=== PATIENT | male | born 1990 | race Caucasian/White ===

== ENCOUNTER 2019-03-10 19:46 | Emergency (ER) | payer OTHER, SELFPAY ==
[2019-03-10 19:52] VITALS: BP 166/87; PULSE 70; RESP 14; TEMP 36.2; O2SAT 99
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
[2019-03-10 21:15] VITALS: PULSE 68; RESP 14; O2SAT 99
== END 2019-03-10 21:16 | disposition home or self-care (01) ==
PROVIDERS: Emergency Provider Emergency Medicine
DX: S90.31XA Contusion of right foot, initial encounter (principal); S90.412A Abrasion, left great toe, initial encounter; V29.9XXA Motorcycle rider (driver) (passenger) injured in unspecified traffic accident, initial encounter
CPT/HCPCS: 73630; 99282; 99283

== ENCOUNTER 2020-01-21 13:50 | Emergency (ER) | payer OTHER, SELFPAY ==
[2020-01-21 14:06] VITALS: BP 166/79; PULSE 75; RESP 14; TEMP 36.9; O2SAT 99
[2020-01-21] MEDS: SODIUM CHLORIDE 0.9% 1,000 ML 1000 ML IV (14:38)
--- NOTE | 2020-01-21 14:42 | ED.GENADULT ---
HPI - General Adult General Chief complaint: Fever Stated complaint: poss food poisioning flu symptoms Time Seen by Provider: 01/21/20 14:10 Source: patient Mode of arrival: Ambulatory History of Present Illness HPI narrative: 29-year-old otherwise healthy gentleman presents with 48 hours of profuse diarrhea, mild abdominal cramping, fevers and sweats. There has been no emesis, no blood, no chest pain, dyspnea, rashes. No and else at home is sick. The diarrhea is watery, no blood. He denies any recent travel or other exposures Related Data Home Medications Medication Instructions Recorded Confirmed ibuprofen 800 mg PO TID PRN 03/10/19 03/10/19 Allergies Allergy/AdvReac Type Severity Reaction Status Date / Time No Known Drug Allergies Allergy Verified 03/10/19 19:55 Review of Systems Review of Systems Narrative: All systems reviewed and are unremarkable except as noted in HPI and below Patient History Medical History Healthy adult (Acute) Social History Smoking Status: Never smoker Smoking Status: Never smoker alcohol intake frequency: 0-2 drinks per day Substance Use Type: does not use Exam Narrative Exam Narrative: General: Healthy appearing, in no acute distress. Able to give a complete and coherent history. Well-nourished well-developed HEENT: Moist mucous membranes, normal sclera with reactive pupils, Neck: No JVD, supple Respiratory: Lungs are clear to auscultation, no wheezing no rales no rhonchi. Full and symmetrical air movement Cardiac: Regular rate and rhythm no murmurs no bruits Abdomen: Soft, nontender, hyperactive bowel tones, no flank pain Skin: Warm and dry, no rashes Neurologic: Grossly neurologically intact with no obvious asymmetries or abnormalities Extremities: No trauma, well perfused Psych: Cooperative, appropriate insight and affect Initial Vital Signs Initial Vital Signs: Vital Signs Temperature 98.5 F 01/21/20 14:06 Pulse Rate 75 01/21/20 14:06 Respiratory Rate 14 01/21/20 14:06 Blood Pressure 166/79 H 01/21/20 14:06 Pulse Oximetry 99 01/21/20 14:06 Course Orders Ordered: Discontinued Medications Sodium Chloride (Normal Saline 0.9%) 1,000 mls @ 1,000 mls/hr IV BOLUS ONE Stop: 01/21/20 15:21 Last Infusion: 01/21/20 16:43 Dose: 0 mls/hr Documented by: Admin: 01/21/20 14:38 Dose: 1,000 mls/hr Documented by: ZAIRE Vital Signs Vital signs: Vital Signs - 8 hr 01/21/20 14:06 Temperature 98.5 F Pulse Rate 75 Respiratory Rate 14 Blood Pressure 166/79 H Pulse Oximetry 99 Restraint [id number] evaluation Date: 01/22/20 Time: 16:11 Medical Decision Making Lab Data Result diagrams: 01/21/20 14:40 01/21/20 14:40 Labs: Lab Results 01/21/20 01/21/20 01/21/20 Range/Units 14:40 14:40 14:40 WBC 8.2 (4.5-11.0) X10^3/uL RBC 4.96 (4.5-5.9) X10^6/uL Hgb 15.9 (13.5-17.5) g/dL Hct 45.0 (41-53) % MCV 90.7 (80-100) fL MCH 32.1 (26-34) PG MCHC 35.4 (30-36) % RDW 12.9 (11.6-14.8) % Plt Count 186 (150-400) X10^3/uL Neut % (Auto) 82.3 H (50-75) % Lymph % (Auto) 10.2 L (25-40) % [place] % (Auto) 7.2 (3-14) % Eos % (Auto) 0.2 L (2-4) % Baso % (Auto) 0.1 (0-2) % Neut # (Auto) 6700 (3256-2000) /uL Lymph # (Auto) 800 L (4357-2841) /uL [place] # (Auto) 600 (0-900) /uL Eos # (Auto) 0 (0-450) /uL Baso # (Auto) 0 (0-100) /uL Sodium 136 L (137-145) mmol/L Potassium 4.1 (3.4-5.1) mmol/L Chloride 100 (98-107) mmol/L Carbon Dioxide 27 (22-32) mmol/L BUN 12 (9-20) mg/dL Creatinine 1.10 (0.66-1.25) mg/dL Estimated GFR > 60.0 (>60) mL/min BUN/Creatinine Ratio 10.9 (6-22) Glucose 118 H (70-100) mg/dL Calcium 9.7 (8.4-10.2) mg/dL Total Bilirubin 0.8 (0.2-1.3) mg/dL AST 30 (17-59) IU/L ALT 26 (<50) IU/L Alkaline Phosphatase 69 (38-126) U/L Total Protein 8.1 (6.3-8.2) g/dL Albumin 4.6 (3.5-5.0) g/dL Globulin 3.5 (1.7-4.1) g/dL Albumin/Globulin Ratio 1.3 (1.0-2.8) Lipase 76 (23-300) U/L Stl C. cayetanensis PCR Not detected (Not Detect) Stool Rotavirus (PCR) Not detected (Not Detect) Stool Adenovirus (PCR) Not detected (Not Detect) Stool Astrovirus (PCR) Not detected (Not Detect) Stool Cryptosporidium PCR Not detected (Not Detect) Stl E.coli Shiga Tox PCR Not detected (Not Detect) St Sh/Enteroin Ecoli PCR Not detected (Not Detect) Stool E coli O157 PCR Not detected (Not Detect) Stl Enterotoxigenic E PCR Not detected (Not Detect) Stool EPEC (PCR) Not detected (Not Detect) Stl E. histolytica PCR Not detected (Not Detect) Stool Giardia Lamblia PCR Not detected (Not Detect) Stool Sapovirus (PCR) Not detected (Not Detect) Stl P. shigelloides PCR Not detected (Not Detect) St Y.enterocolitica PCR Not detected (Not Detect) Stool Vibrio (PCR) Not detected (Not Detect) Stl Vibrio cholerae PCR Not detected (Not Detect) Stl Enteroaggr Ecoli PCR Not detected (Not Detect) Stl Norovirus GI/GII PCR Not detected (Not Detect) Campylobacter (PCR) Detected H (Not Detect) C. difficile Tox (PCR) Not detected (Not Detect) Salmonella (PCR) Not detected (Not Detect) [facility] Narrative Medical decision making narrative: 01/22/2020 800 stool returned positive for Campylobacter will treat with azithromycin 500 for 3 days. Will contact patient and call prescription to pharmacy for him. Discharge Plan Departure Patient Disposition: Home Clinical Impression: Gastroenteritis Discharge Date/Time: 01/21/20 16:47 Instructions: DI for Viral Gastroenteritis -- Adult Activity Restrictions/Additional Instructions: Thank you for coming in today I will give you a call tomorrow at [phone] to let you know the results of your stool viral panel. In the meantime, I do believe it is safe you to go home. Please do continue to use Gatorade and Pedialyte to keep well hydrated. I expect that you still have a couple more days of diarrhea and arranging your work schedule to make sure that you have immediate access to the bathroom would be prudent. Please make sure that your using good cleaning techniques after going to the bathroom including using bleach to keep the bathroom as clean as possible to avoid spreading this to your family. If you find that you are getting worse, developed a worsening fever, any blood in the stool or began vomiting it would be appropriate to return to the emergency room for further evaluation. I wish you the best. Prescriptions: No Action ibuprofen 800 mg Tablet 800 mg PO TID PRN (Reason: Pain (Scale Score 7-10)) RF: 0
[2020-01-21 15:30] LABS: Add Manual Diff / Slide Review NO; Basophils Absolute Auto 0 /uL (0-100); Basophils Percent Auto 0.1 % (0-2); Eosinophils Absolute Auto 0 /uL (0-450); Eosinophils Percent Auto 0.2 % (2-4); Hemoglobin 15.9 g/dL (13.5-17.5); Lymphocytes Absolute Auto 800 /uL (1100-4500); Lymphocytes Percent Auto 10.2 % (25-40); Mean Corpuscular HGB Conc 35.4 % (30-36); Mean Corpuscular Hemoglobin 32.1 PG (26-34); Mean Corpuscular Volume 90.7 fL (80-100); Monocytes Absolute Auto 600 /uL (0-900); Monocytes Percent Auto 7.2 % (3-14); Neutrophils Absolute Auto 6700 /uL (1500-7000); Neutrophils Percent Auto 82.3 % (50-75); Platelet Count 186 X10^3/uL (150-400); Red Blood Cell Count 4.96 X10^6/uL (4.5-5.9); Red Cell Distribution Width 12.9 % (11.6-14.8); White Blood Cell Count 8.2 X10^3/uL (4.5-11.0)
[2020-01-21 15:44] LABS: Alanine Aminotransferase 26 IU/L (<50); Albumin 4.6 g/dL (3.5-5.0); Albumin Globulin Ratio 1.3 (1.0-2.8); Alkaline Phosphatase 69 U/L (38-126); Aspartate Aminotransferase 30 IU/L (17-59); BUN Creatinine Ratio 10.9 (6-22); Bilirubin Total 0.8 mg/dL (0.2-1.3); Blood Urea Nitrogen 12 mg/dL (9-20); Calcium 9.7 mg/dL (8.4-10.2); Carbon Dioxide 27 mmol/L (22-32); Chloride 100 mmol/L (98-107); Estimated Glomerular Filt Rate > 60.0 mL/min (>60); Globulin 3.5 g/dL (1.7-4.1); Glucose 118 mg/dL (70-100); HEMOLYSIS 18 (0-50); Lipase 76 U/L (23-300); Potassium 4.1 mmol/L (3.4-5.1); Sodium 136 mmol/L (137-145); Total Protein 8.1 g/dL (6.3-8.2)
[2020-01-21 16:47] VITALS: BP 164/84; PULSE 80; RESP 18; O2SAT 100
[2020-01-21 18:22] LABS: Clostridium difficile toxin AB Not Detected (Not Detect); Plesiomonsa shigelloides Not Detected (Not Detect); Salmonella Not Detected (Not Detect)
[2020-01-21 18:23] LABS: Adenovirus F 40/41 Not Detected (Not Detect); Astrovirus Not Detected (Not Detect); Cryptosporidium Not Detected (Not Detect); Cyclospora cayetanensis Not Detected (Not Detect); Entamoeba histolytica Not Detected (Not Detect); Enteroaggregative E.coli Not Detected (Not Detect); Enteropathogenic E.coli Not Detected (Not Detect); Enterotoxigenic E.coli It/st Not Detected (Not Detect); Giardia lamblia Not Detected (Not Detect); Norovirus GI/GII Not Detected (Not Detect); Rotavirus A Not Detected (Not Detect); Sapovirus Not Detected (Not Detect); Shiga-like toxin-prod E.coli Not Detected (Not Detect); Shigella/Enteroinvasive E.coli Not Detected (Not Detect); Vibrio Not Detected (Not Detect); Vibrio cholerae Not Detected (Not Detect); Yersinia enterocolitica Not Detected (Not Detect)
[2020-01-22 07:26] LABS: Campylobacter Detected (Not Detect)
== END 2020-01-21 16:47 | disposition home or self-care (01) ==
PROVIDERS: Emergency Provider Emergency Medicine
DX: K52.9 Noninfective gastroenteritis and colitis, unspecified (principal)
CPT/HCPCS: 36415; 80053; 83690; 85025; 87507; 96360; 96361; 99284

== ENCOUNTER 2020-04-14 15:28 | Emergency (ER) | payer OTHER, SELFPAY ==
[2020-04-14 15:30] VITALS: BP 151/97; PULSE 72; RESP 18; TEMP 36.7; O2SAT 99
--- NOTE | 2020-04-14 15:33 | DI.RAD.S_ITS ---
PROCEDURE: XR FOOT LT MIN 3V INDICATIONS: dorsal foot pain/swelling after running TECHNIQUE: 3 views of the foot were acquired. COMPARISON: [facility], CR, XR FOOT RT MIN 3V, 03/10/2019, 20:17. FINDINGS: Bones: No fractures or dislocations. No suspicious bony lesions. Soft tissues: No tibiotalar joint effusion. Achilles tendon appears normal. IMPRESSION: Unremarkable plain film study, without a fracture seen by plain film. If there is strong clinical concern for a stress fracture, then please consider a dedicated MRI or nuclear medicine bone scan for further evaluation (assuming that there is no contraindication). Dictated by: Bebeto Andres M.D. on 04/14/2020 at 14:46 Approved by: Bebeto Andres M.D. on 04/14/2020 at 14:47
--- NOTE | 2020-04-14 17:11 | PC.NURSE ---
place lily rico per dr thompson's order.
--- NOTE | 2020-04-14 19:07 | ED.LOWEXIN ---
HPI - Extremity Injury (Lower) General Chief Complaint: Extremity Injury, Lower Stated Complaint: injured left foot, thinks fractured it. Time Seen by Provider: 04/14/20 16:52 Source: patient Mode of arrival: Ambulatory Limitations: no limitations History of Present Illness HPI Narrative: 30-year-old male nonsmoker with noncontributory medical history presents with a chief complaint of pain and swelling on the dorsum of his left foot. He states that he was running a few days ago when he had started developing pain in his foot. He denies any specific injury and felt no pop or cracking but since then has had pain with any flexion and extension of his foot and developed a bit of swelling on the dorsum of his foot today. He denies any redness or warmth. He has no systemic findings such as fever, chills nor nausea or vomiting. He denies any numbness, tingling or weakness. MD complaint: foot injury Onset (ago): day(s) Injury: Left: foot Place: street/outdoors Severity: moderate Relieving factors: rest Exacerbating factors: weight bearing, movement and palpation Context: running Associated symptoms: swelling and ambulatory Other symptoms: none Related Data Home Medications Medication Instructions Recorded Confirmed ibuprofen 800 mg PO TID PRN 03/10/19 03/10/19 Previous Rx's Medication Instructions Recorded ketorolac 10 mg PO Q6H PRN #14 tab 04/14/20 Allergies Allergy/AdvReac Type Severity Reaction Status Date / Time No Known Drug Allergies Allergy Verified 03/10/19 19:55 Review of Systems Constitutional Constitutional: Denies chills, Denies fatigue, Denies fever(s), Denies frequent falls, Denies lethargy and Denies weakness Eyes Eyes: Denies change in vision, Denies eye discharge, Denies irritation and Denies loss of vision ENT Ears, Nose, Mouth, and Throat: Denies change in voice, Denies dizziness, Denies neck pain, Denies sore throat and Denies throat swelling Cardiovascular Cardiovascular: Denies chest pain, Denies irregular heart rhythm, Denies lightheadedness, Denies palpitations, Denies dyspnea, Denies dyspnea on exertion and Denies orthopnea Respiratory Respiratory: Denies cough, Denies dyspnea, Denies dyspnea on exertion and Denies wheezing Gastrointestinal Gastrointestinal: Denies abdominal pain, Denies change in bowel habits, Denies diarrhea, Denies nausea and Denies vomiting Genitourinary Genitourinary: Denies hematuria, Denies flank pain, Denies urinary incontinence and Denies urinary urgency Musculoskeletal Musculoskeletal: Denies back pain, Reports joint swelling, Reports limited range of motion, Denies muscle weakness, Denies neck pain, Denies numbness and Denies tingling Integumentary/Breasts Skin/Breast: Denies pruritus, Denies erythema, Denies rash and Denies wounds Neurologic Neurologic: Denies behavioral changes, Denies confusion, Denies dizziness, Denies frequent falls, Denies loss of vision, Denies numbness, Denies tingling and Denies weakness Psychiatric Psychiatric: Denies anxiety, Denies behavioral changes, Denies confusion, Denies depression, Denies homicidal ideation and Denies suicidal ideation Endocrine Endocrine: Denies fatigue, Denies flushing and Denies palpitations Hematologic/Lymphatic Hematologic/Lymphatic: Denies easy bruising Allergic/Immunologic Allergic/Immunologic: Denies urticaria, Denies throat swelling and Denies wheezing Patient History Medical History Healthy adult (Acute) Social History Smoking Status: Never smoker Smoking Status: Never smoker alcohol intake frequency: 0-2 drinks per day Substance Use Type: does not use Exam Narrative Exam Narrative: GEN: AOx3 and in mild distress EYES: Pupils are equal, round, and reactive to light and accommodation. Extraoccular muscles are intact bilaterally. There is no subconjunctival hemorrhage or exudate. CHEST: Lungs are clear to auscultation bilaterally and free of wheezes, rales, or rhonchi. Heart rate is regular rhythm, there are no murmurs, clicks, rubs, or gallops. There is no chest wall tenderness. ABD: Abdomen is soft and nontender. There is no guarding or rebound. Bowel sounds are normal in all 4 quadrants. There is no mass or organomegaly. EXT: Moderate swelling on dorsum of left foot, closed, isolated and neurovascular intact. Cap refill less than 2 seconds. Mildly tender to palpation but no significant bony point tenderness. Full painless ROM of all extremities with no loss of sensation or strength. SKIN: Warm, pink, and dry. No erythema or rash Initial Vital Signs Initial Vital Signs: Vital Signs Temperature 98.1 F 04/14/20 15:30 Pulse Rate 72 04/14/20 15:30 Respiratory Rate 18 04/14/20 15:30 Blood Pressure 151/97 H 04/14/20 15:30 Pulse Oximetry 99 04/14/20 15:30 Procedures Orthopedic Splinting/Casting Injury #1: Side: left Lower Extremity Injury Location: foot Lower Extremity Immobilizer: post-op shoe Post splinting neuro exam: intact Post splinting vascular exam: intact Placed by: Nursing Course Orders Ordered: ED Orders 04/14/20 15:33 XR foot LT min 3V Stat Vital Signs Vital signs: Vital Signs - 8 hr 04/14/20 15:30 Temperature 98.1 F Pulse Rate 72 Respiratory Rate 18 Blood Pressure 151/97 H Pulse Oximetry 99 MDM - Extremity Injury (Lower) Imaging Data Extremity x-ray #1: Radiologist's Impression: Chart Viewer Diagnostics DATE TYPE STATUS AUTHOR Hx 04/14/20 15:33 Bebeto Andres 03/10/19 20:00 Yanely Juarez William J 30, M0 1990 [facility], [facility] ED 99.79kg Extremity Injury, Lower Search Chart No Data to Display ONSET Today 15:30 Jonnathan Call 30 M [address] [address] XRay Report Signed Patient: JakubJonnathan JMR#: [id number] : 1990Acct:[id number] Age/Sex: 30 / MDate of Service: 04/14/20 Loc: ED Accession Number: [id number] Procedure: XR foot LT min 3V Ordering Provider: Osmar Guido D.O. PROCEDURE: XR FOOT LT MIN 3V INDICATIONS: dorsal foot pain/swelling after running TECHNIQUE: 3 views of the foot were acquired. [facility], [facility]10/[facility], 20:17. FINDINGS: Bones: No fractures or dislocations. No suspicious bony lesions. Soft tissues: No tibiotalar joint effusion. Achilles tendon appears normal. IMPRESSION: Unremarkable plain film study, without a fracture seen by plain film. If there is strong clinical concern for a stress fracture, then please consider a dedicated MRI or nuclear medicine bone scan for further evaluation (assuming that there is no contraindication). Dictated by: Bebeto Andres M.D. on 04/14/2020 at 14:46 Approved by: Bebeto Andres M.D. on 04/14/2020 at 14:47 MDM Narrative Medical decision making narrative: Reassuring exam and imaging. Discussion with patient about possible diagnoses including soft tissue injury, stress fractures, contusion versus other. He has been given return precautions and has had questions answered to his apparent satisfaction. Discharge Plan Departure Patient Disposition: Home Clinical Impression: Acute foot pain Qualifiers: Laterality: left Qualified Code(s): M79.672 - Pain in left foot Discharge Date/Time: 04/14/20 17:13 Instructions: DI for Foot Pain Activity Restrictions/Additional Instructions: *You have been diagnosed with [left foot pain, soft tissue injury vs. occult fracture ] *What to do: *Take medications as directed *Follow up with your primary care provider in 2-3 days, call for an appointment. Let them know you were seen in the Emergency Department and that we ask that you be seen in follow up *Return to ER if you should have any new, worsening or concerning symptoms Prescriptions: New ketorolac 10 mg tablet 10 mg PO Q6H PRN (Reason: pain) Qty: 14 RF: 0 No Action ibuprofen 800 mg Tablet 800 mg PO TID PRN (Reason: Pain (Scale Score 7-10)) RF: 0 Referrals: [facility] [Outside]
== END 2020-04-14 17:13 | disposition home or self-care (01) ==
PROVIDERS: Emergency Provider Emergency Medicine
DX: M79.672 Pain in left foot (principal); Y93.02 Activity, running
CPT/HCPCS: 73630; 99283

== ENCOUNTER → 2020-05-03 07:53 | Outpatient (CLI) | payer OTHER, SELFPAY ==
--- NOTE | 2020-05-03 | DI.MRI.S_ITS ---
PROCEDURE: MRFOOT LT WO CON INDICATIONS: Pain in left foot TECHNIQUE: Noncontrast sagittal T1 spin echo and T2 fast spin echo with fat saturation, long-axis T1 spin echo and T2 fast spin echo with fat saturation, short-axis T1 spin echo and T2 fast spin echo with fat saturation through the forefoot. COMPARISON: [facility], CR, XR FOOT LT MIN 3V, 04/14/2020, 15:27. FINDINGS: Image quality: Excellent. Bones and joints: Symmetric subtle oblique fracture, with mild displacement is seen. There is marked adjacent marrow and soft tissue edema. No other definite fracture identified. Marginal areas of T2 hyperintensity/edema present in the first and fifth metatarsal heads which could be cysts or erosions. Soft tissues: The visualized plantar foot muscles demonstrate normal signal and bulk. Visualized flexor and extensor tendons appear intact, without tenosynovitis. The distal insertions of the peroneus brevis and longus tendons appear intact. The principal Lisfranc ligament appears intact. No soft tissue ganglion cysts or bursal fluid collections. Sagittal images demonstrate no evidence for plantar plate tears. IMPRESSION: Second metatarsal fracture with associated marrow and soft tissue edema Age-indeterminate cysts versus erosions involving the first and fifth metatarsal heads. Dictated by: Layo Wheatley M.D. on 05/03/2020 at 11:04 Approved by: Layo Wheatley M.D. on 05/03/2020 at 11:25
== END ==
PROVIDERS: PCP Preventive Medicine Public Health & General Preventive Medicine; Referring Provider Preventive Medicine Public Health & General Preventive Medicine; Visit Provider Preventive Medicine Public Health & General Preventive Medicine
DX: M79.672 Pain in left foot (principal); S92.322A Displaced fracture of second metatarsal bone, left foot, initial encounter for closed fracture
CPT/HCPCS: 73718

== ENCOUNTER 2023-03-10 09:00 | Outpatient (RCR) | payer OTHER, SELFPAY ==
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
--- NOTE | 2023-01-27 17:33 | PT.OPPOC ---
Physical, Occupational & Speech Therapy At [facility] Current Diagnoses Pain in left knee (01/27/23) Difficulty in walking, not elsewhere classified (01/27/23) Weakness (01/27/23) Visit Care Team Role Provider Type Arsenio Barragan MD Primary Care Provider Non-Staff Specialty: Medical Address: [employer] [place] [address], [address] [place] [address] [employer] [address], [place], [address] Fax: Email: Jesus Min DO Attending Provider Non-Staff Family Provider Referring Provider Specialty: Medical Address: [address] [place] [address], [address], [address], [place], [address] Email: Plan Of Care PT-OP-T Assessment and Plan Start: 01/27/23 09:01 Freq: Status: Active Protocol: Document 01/27/23 09:01 [facility] (Rec: 01/27/23 09:47 [facility] [id number]) Physical Therapy Assessment Rehab Potential Rehabilitation Potential Excellent Evaluation Complexity Number of Personal Factors/Comorbidities 1-2 Number of Body Systems Impaired 3 Clinical Presentation at Evaluation Evolving Impairments Impairments Activity Tolerance,Pain, Strength Goals Four Impairment activity tolerance Impairment LEFS 80% Fpc Goal (LTG) Improve LEFS score to at least 95% as measure of improved activity tolerance LTG Duration 03/29/23 Three Impairment weakness and dec flexibility Impairment left knee, hip ext, hip abduction 4/5 Short Term Goal (STG) Patient to be instructed in HEP for purposes of strengthening and flexibility STG Duration 02/27/23 Fpc Goal (LTG) Patient to be independent with HEP and demonstrate left LE strength / and be independent and compliant with HEP LTG Duration 03/29/23 Two Impairment dec balance left LE with pain Fpc Goal (LTG) SLS x 30 sec no pain left LE LTG Duration 03/29/23 One Impairment pain with knee rotation, walking, squatting, compensatory movements Fpc Goal (LTG) Patient to report pain no greater than 1/10 with all usual activities and demonstrate no compensatory movements LE's with sit to stand, squatting LTG Duration 03/29/23 Assessment Summary Assessment Patient presents to PT with function-limiting weakness left LE with pain with weight- bearing including squats, SLS , rotational movements. Signs and symptoms consistent with meniscus injury, possible strain ACL. Knee circumfence right 43.8, 43.5, inf right 40 .7, 40.3, 5 cm prox right 48, 47.5, 10 right 53.3, left 52.3 indicating some atrophy left quads. Favoring left LE with sit to stand, squats, weak left LE espec quads and hip add. Difficulty with single leg balance left with c/o increased pain. Applied kinesiotape left knee, instructed in sit to stand and squats with use of mirror to identify compensations, and instructed in resisted sidestepping. Physical Therapy Plan Frequency and Duration Frequency of Treatment 1x/Week Duration of treatment (weeks) 6 Plan of Care Start Date 01/27/23 Plan of Care End Date 03/29/23 Therapeutic Interventions Therapeutic Interventions Home Exercise Program,Manual Therapy,Neuromuscular Re- education,Patient/Caregiver Education,Self-Care/Home Management,Taping,Therapeutic Activities,Therapeutic Exercises Modalities Cold Pack/Ice Massage,Electric Stimulation,Hot Packs, Infrared Therapy,Ultrasound Next Visit Focus/Plan Next Note Type Treatment Note Next Visit Plan Review HEP, progress knee strengthening, flexibility, balance including use of shuttle balance, star touch, shuttle leg press single leg with wobble disc as maryanne. Plan of Care Dates Plan of Care Start Date 01/27/23 Plan of Care End Date 03/29/23 Electronically Signed by: Nena Baeza PT 01/27/23 7909 If you are in agreement with this Plan of Care, please return a signed and dated copy. I have reviewed this Plan of Care and certify that the skilled therapy services above are required to meet the patient?s needs. Physician Signature Date Printed Name and Credentials Clinical Instructor Signature Printed Name and Credentials
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
== END 2023-09-08 11:14 | disposition home or self-care (01) ==
LOC: PHYS 09:00
PROVIDERS: PCP Preventive Medicine Public Health & General Preventive Medicine
DX: M25.562 Pain in left knee (principal); R26.2 Difficulty in walking, not elsewhere classified; R53.1 Weakness
CPT/HCPCS: 97110; 97112; 97140; 97161; 97535

== ENCOUNTER → 2023-03-24 10:20 | Outpatient (CLI) | payer OTHER, SELFPAY ==
--- NOTE | 2023-03-24 | DI.RAD.S_ITS ---
PROCEDURE: FL KNEE INJECTION MR/CT LT COMPARISON: None. INDICATIONS: LEFT KNEE PAIN FINDINGS: Fluoroscopic guidance utilized for an arthroscopic injection of dilute gadolinium. Position was confirmed with Isovue. IMPRESSION: Successful atherosclerotic injection of the dilute gadolinium mixture for MRI. Dictated by: Chemo Amaya M.D. on 03/24/2023 at 12:41 Approved by: Chemo Amaya M.D. on 03/24/2023 at 12:43
--- NOTE | 2023-03-24 | DI.MRI.S_ITS ---
PROCEDURE: MR KNEE LT W CON INDICATIONS: LEFT KNEE PAIN TECHNIQUE: After the administration of 50 mL of dilute intra-articular Gadolinium contrast, sagittal T1 spin echo with fat saturation and PD fast spin echo with fat saturation, coronal T1 spin echo with and without fat saturation, coronal T2 fast spin echo with fat saturation, axial PD fast spin echo with fat saturation through the knee. COMPARISON: None. FINDINGS: Image quality: Excellent. Menisci: The medial and lateral menisci demonstrate normal morphology and internal signal. The meniscal root ligaments appear intact. Cruciate ligaments: The anterior and posterior cruciate ligaments appear intact. Medial structures: The medial collateral ligament appears intact. The posterior oblique ligament, semimembranosus tendon insertions, oblique popliteal ligament, and meniscocapsular junction appear intact. Visualized portions of the pes anserinus tendons appear normal. No abnormal bursal fluid. Lateral structures: The lateral collateral ligament, long and short heads of the biceps femoris tendon appear intact. The popliteus tendon appears normal; the popliteofibular ligament appears intact. Iliotibial band appears normal. Anterior structures: The quadriceps tendon is intact. Proximal patellar tendinosis and low-grade intrasubstance partial-thickness tear at its inferior patellar insertion is seen.. Patellar alignment is normal. No femoral trochlear dysplasia or ventral trochlear prominence. No edema in the infrapatellar fat pad. Bone and cartilage: There is significant marrow edema involving weight-bearing portion of lateral femoral condyle with overlying focal full-thickness cartilage defect and cortical irregularity. No other area of abnormal marrow signal. The cartilage of the medial femoral tibial compartment and the patellofemoral compartment, appears normal in thickness. Joint space: No Bustamante's cyst. Normal appearing synovial plicae are incidentally noted. No intra-articular bodies. IMPRESSION: 1. Finding is suggestive of focal nondisplaced fracture versus osteochondral injury involving weight-bearing portion of lateral tibial plateau with marrow edema , overlying cortical and cartilage defect. No other area of abnormal marrow signal. No intra-articular loose bodies. 2. Proximal patellar tendinosis and low-grade intrasubstance partial-thickness tear at its inferior patellar insertion. The quadriceps tendon is intact. 3. The cruciate ligaments are intact. 4. No evidence of focal meniscal tear. Dictated by: Roger Ying M.D. on 03/24/2023 at 13:44 Approved by: Roger Ying M.D. on 03/24/2023 at 13:47
== END ==
PROVIDERS: PCP Preventive Medicine Public Health & General Preventive Medicine
DX: S76.112A Strain of left quadriceps muscle, fascia and tendon, initial encounter (principal); M25.562 Pain in left knee
CPT/HCPCS: 27369; 73722; 77002

== ENCOUNTER 2024-01-26 10:10 | Emergency (ER) | payer OTHER, SELFPAY ==
[2024-01-26] VITALS (9 sets, daily range): BP systolic 151–176; BP diastolic 89–104; PULSE 68–91; RESP 17–18; TEMP 36.4; O2SAT 94–99; BMI 29.5
--- NOTE | 2024-01-26 10:29 | DI.MRI.S_ITS ---
PROCEDURE: MR ORBIT WO/W CON COMPARISON: None. INDICATIONS: sent by opth for r/o ms, optic neuritis Technique: Pre contrast sagittal and axial FLAIR, axial gradient echo, T2, and diffusion-weighted sequences are followed by post contrast sagittal, axial, and coronal fat saturated T1 sequences of the orbits. FINDINGS: There is a dural-based avidly enhancing mass within the right middle cranial fossa anteriorly measuring roughly 35 mm transverse, with moderate surrounding ill-defined FLAIR signal elevation, spanning roughly 100 mm anteroposterior by 45 mm craniocaudal. There is diffuse right-sided sulcal effacement. There is roughly 9 mm of leftward midline shift. There is compression of the right lateral ventricle. No hydrocephalus. Diffusion-weighted imaging reveals no recent infarct. The sinuses, mastoids, and orbits are grossly unremarkable. IMPRESSION: 1. Right middle cranial fossa meningioma with surrounding vasogenic edema, and associated leftward midline shift. 2. Negative evaluation of the orbits. 3. No acute process. No recent infarct. Dictated by: Lena Otto M.D. on 01/26/2024 at 13:57 Approved by: Lena Otto M.D. on 01/26/2024 at 14:03
[2024-01-26 10:45] LABS: Add Manual Diff / Slide Review NO; Basophils Absolute Auto 0 /uL (0-100); Basophils Percent Auto 0.6 % (0-2); Eosinophils Absolute Auto 100 /uL (0-450); Eosinophils Percent Auto 0.9 % (2-4); Hematocrit 46.9 % (41-53); Hemoglobin 16.2 g/dL (13.5-17.5); Lymphocytes Absolute Auto 1900 /uL (1100-4500); Lymphocytes Percent Auto 30.4 % (25-40); Mean Corpuscular HGB Conc 34.5 % (30-36); Mean Corpuscular Hemoglobin 30.8 PG (26-34); Mean Corpuscular Volume 89.3 fL (80-100); Monocytes Absolute Auto 600 /uL (0-900); Monocytes Percent Auto 8.8 % (3-14); Neutrophils Absolute Auto 3700 /uL (1500-7000); Neutrophils Percent Auto 59.3 % (50-75); Platelet Count 249 X10^3/uL (150-400); Red Blood Cell Count 5.25 X10^6/uL (4.5-5.9); Red Cell Distribution Width 13.3 % (11.6-14.8); White Blood Cell Count 6.3 X10^3/uL (4.5-11.0)
[2024-01-26 10:59] LABS: Alanine Aminotransferase 36 IU/L (<50); Albumin 4.7 g/dL (3.5-5.0); Albumin Globulin Ratio 1.3 (1.0-2.8); Alkaline Phosphatase 75 U/L (38-126); Aspartate Aminotransferase 29 IU/L (17-59); BUN Creatinine Ratio 12.3 (6-22); Bilirubin Total 0.9 mg/dL (0.2-1.3); Blood Urea Nitrogen 13 mg/dL (9-20); C-Reactive Protein Quant 0.6 mg/dL (<1.0); Calcium 9.7 mg/dL (8.4-10.2); Carbon Dioxide 30 mmol/L (22-32); Chloride 104 mmol/L (98-107); Estimated Glomerular Filt Rate > 60 mL/min (>60); Globulin 3.6 g/dL (1.7-4.1); Glucose 114 mg/dL (70-100); HEMOLYSIS < 15 (0-50); Potassium 4.4 mmol/L (3.4-5.1); Sodium 138 mmol/L (137-145); Total Protein 8.3 g/dL (6.3-8.2)
[2024-01-26 11:02] LABS: Erythrocyte Sedimentation Rate 3 MM/HR (0-15)
--- NOTE | 2024-01-26 11:25 | ED_ITS ---
HPI - Recheck/Abnormal Lab/Rx <DO Dino Coker Last Filed: 01/31/24 07:21> General Chief Complaint: Recheck/Abnormal Lab/Rx Stated Complaint: needs [place]ri sent from base Time Seen by Provider: 01/26/24 10:29 Source: patient Mode of arrival: Family Vehicle History of Present Illness HPI narrative: 33-year-old male with history of PRK who was sent by Optometry for MR of brain and orbits to rule out optic neuritis/MS. Patient states he noticed a little much or black spot in his vision that has not gone away over the past day or so. 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 Patient states no fevers, no headaches, he states he feels like it is a little bit of pressure on the right eye the spot is on the right side. He states it has just a small spot that is sort of moves with his vision. It has not a curtain or complete loss of vision. He does not have any pain. Patient states he has not had similar symptoms in the past. He notes he had NC K in the past but states no other issues. He states in November did have bunch of air blowing in his eye and felt like he got a foreign body there was a little bubble and he was told he had a little abrasion was put on drops in that resolved without issue. Patient states no other vision changes. No numbness tingling or weakness, no chest pain or shortness of breath, no syncope. No nausea or vomiting no other GI or urinary symptoms. No known drug allergies no daily medications. No tobacco, occasional alcohol, no recreational drugs. Patient receives his care through the [facility]. Related Data Allergies Allergy/AdvReac Type Severity Reaction Status Date / Time No Known Drug Allergies Allergy Verified 01/26/24 21:16 Review of Systems <DO Dino Coker Last Filed: 01/31/24 07:21> Review of Systems ROS Unobtainable: All systems reviewed & are unremarkable except as noted in HPI and below Patient History <DO Dino Coker Last Filed: 01/31/24 07:21> Medical History (Updated 01/26/24 @ 15:26 by Annemarie Marrufo DO) Healthy adult Social History Smoking Status: Never smoker Smoking Status: Never smoker alcohol intake frequency: 0-2 drinks per day Substance Use Type: does not use Exam <Annemarie Marrufo DO - Last Filed: 01/31/24 07:21> Narrative Exam Narrative: GEN: well nourished, well appearing male, alert and oriented x 3, patient appears to be in mild distress. HEENT: Atraumatic, pupils are equal round reactive to light, extraocular movements are intact, nares are clear, there is no conjunctival pallor. Throat is clear without any exudates, erythema, tonsillar enlargement or uvular deviation HEART: Regular rate and rhythm without murmur, clicks, rubs. No carotid bruits, pulses are equal in upper and lower extremities LUNGS:Lungs clear to auscultation, no wheezes, rales, crackles, chest moves symmetrically ABD:bowel sounds normal, soft, non-tender, no guarding, rebound, rigidity, no masses noted, no hepatosplenomegaly :No CVA tenderness MSCL: Non-tender, no muscle atrophy, muscles strength 5/5 upper and lower extremities, full range of motion, normal gait NEURO:CN 2-12 intact, sensation normal SKIN: No rash, erythema or other skin changes Initial Vital Signs Initial Vital Signs: Vital Signs Pulse Rate 79 01/26/24 10:16 Blood Pressure 176/104 H 01/26/24 10:16 Pulse Oximetry 97 01/26/24 10:16 <Annemarie Gutierrez MD - Last Filed: 01/27/24 21:56> Initial Vital Signs Initial Vital Signs: Vital Signs Pulse Rate 79 01/26/24 10:16 Blood Pressure 176/104 H 01/26/24 10:16 Pulse Oximetry 97 01/26/24 10:16 <Forrest Reagan DO - Last Filed: 01/27/24 14:37> Initial Vital Signs Initial Vital Signs: Vital Signs Pulse Rate 79 01/26/24 10:16 Blood Pressure 176/104 H 01/26/24 10:16 Pulse Oximetry 97 01/26/24 10:16 Course <Annemarie Marrufo DO - Last Filed: 01/31/24 07:21> Orders Ordered: Discontinued Medications Acetaminophen (Acetaminophen 325 Mg Tablet) 975 mg PO NOW ONE Stop: 01/26/24 23:51 Last Admin: 01/26/24 23:54 Dose: 975 mg Documented By: SHAN Acetaminophen (Acetaminophen 325 Mg Tablet) 975 mg PO NOW ONE Stop: 01/27/24 09:41 Last Admin: 01/27/24 09:47 Dose: 975 mg Documented By: KAEL Dexamethasone (Dexamethasone 4 Mg/Ml Vial) 4 mg IV Q6H [facility] Last Admin: 01/27/24 15:30 Dose: 4 mg Documented By: Admin: 01/27/24 09:24 Dose: 4 mg Documented By: Admin: 01/27/24 03:26 Dose: 4 mg Documented By: Admin: 01/26/24 21:51 Dose: 4 mg Documented By: Admin: 01/26/24 15:43 Dose: 4 mg Documented By: KAEL Hydralazine HCl (Hydralazine 20 Mg/Ml Vial) 10 mg IV NOW ONE Stop: 01/27/24 19:56 Last Admin: 01/27/24 19:58 Dose: 10 mg Documented By: KHUSHBU Vital Signs Vital signs: Vital Signs - 8 hr 01/27/24 19:45 01/27/24 19:58 Temperature 98.3 F Pulse Rate 67 Respiratory Rate 16 Blood Pressure 176/86 H 176/101 H Pulse Oximetry 96 Oxygen Delivery Method Room Air <Annemarie Gutierrez MD - Last Filed: 01/27/24 21:56> Orders Ordered: Discontinued Medications Acetaminophen (Acetaminophen 325 Mg Tablet) 975 mg PO NOW ONE Stop: 01/26/24 23:51 Last Admin: 01/26/24 23:54 Dose: 975 mg Documented By: SHAN Acetaminophen (Acetaminophen 325 Mg Tablet) 975 mg PO NOW ONE Stop: 01/27/24 09:41 Last Admin: 01/27/24 09:47 Dose: 975 mg Documented By: KAEL Dexamethasone (Dexamethasone 4 Mg/Ml Vial) 4 mg IV Q6H [facility] Last Admin: 01/27/24 15:30 Dose: 4 mg Documented By: Admin: 01/27/24 09:24 Dose: 4 mg Documented By: Admin: 01/27/24 03:26 Dose: 4 mg Documented By: Admin: 01/26/24 21:51 Dose: 4 mg Documented By: Admin: 01/26/24 15:43 Dose: 4 mg Documented By: KAEL Hydralazine HCl (Hydralazine 20 Mg/Ml Vial) 10 mg IV NOW ONE Stop: 01/27/24 19:56 Last Admin: 01/27/24 19:58 Dose: 10 mg Documented By: KHUSHBU Vital Signs Vital signs: Vital Signs - 8 hr 01/27/24 19:45 01/27/24 19:58 Temperature 98.3 F Pulse Rate 67 Respiratory Rate 16 Blood Pressure 176/86 H 176/101 H Pulse Oximetry 96 Oxygen Delivery Method Room Air <Forrest Reagan DO - Last Filed: 01/27/24 14:37> Orders Ordered: Discontinued Medications Acetaminophen (Acetaminophen 325 Mg Tablet) 975 mg PO NOW ONE Stop: 01/26/24 23:51 Last Admin: 01/26/24 23:54 Dose: 975 mg Documented By: SHAN Acetaminophen (Acetaminophen 325 Mg Tablet) 975 mg PO NOW ONE Stop: 01/27/24 09:41 Last Admin: 01/27/24 09:47 Dose: 975 mg Documented By: KAEL Dexamethasone (Dexamethasone 4 Mg/Ml Vial) 4 mg IV Q6H [facility] Last Admin: 01/27/24 15:30 Dose: 4 mg Documented By: Admin: 01/27/24 09:24 Dose: 4 mg Documented By: Admin: 01/27/24 03:26 Dose: 4 mg Documented By: Admin: 01/26/24 21:51 Dose: 4 mg Documented By: Admin: 01/26/24 15:43 Dose: 4 mg Documented By: KAEL Hydralazine HCl (Hydralazine 20 Mg/Ml Vial) 10 mg IV NOW ONE Stop: 01/27/24 19:56 Last Admin: 01/27/24 19:58 Dose: 10 mg Documented By: KHUSHBU Vital Signs Vital signs: Vital Signs - 8 hr 01/27/24 19:45 01/27/24 19:58 Temperature 98.3 F Pulse Rate 67 Respiratory Rate 16 Blood Pressure 176/86 H 176/101 H Pulse Oximetry 96 Oxygen Delivery Method Room Air MDM - Recheck/Abnormal Lab/Rx <Annemarie Marrufo DO - Last Filed: 01/31/24 07:21> Lab Data 01/26/24 10:38 01/26/24 10:38 Labs: Lab Results 01/26/24 Range/Units 10:38 WBC 6.3 (4.5-11.0) X10^3/uL RBC 5.25 (4.5-5.9) X10^6/uL Hgb 16.2 (13.5-17.5) g/dL Hct 46.9 (41-53) % MCV 89.3 (80-100) fL MCH 30.8 (26-34) PG MCHC 34.5 (30-36) % RDW 13.3 (11.6-14.8) % Plt Count 249 (150-400) X10^3/uL Neut % (Auto) 59.3 (50-75) % Lymph % (Auto) 30.4 (25-40) % [place] % (Auto) 8.8 (3-14) % Eos % (Auto) 0.9 L (2-4) % Baso % (Auto) 0.6 (0-2) % Neut # (Auto) 3700 (0709-5082) /uL Lymph # (Auto) 1900 (1507-9392) /uL [place] # (Auto) 600 (0-900) /uL Eos # (Auto) 100 (0-450) /uL Baso # (Auto) 0 (0-100) /uL ESR 3 (0-15) MM/HR Sodium 138 (137-145) mmol/L Potassium 4.4 (3.4-5.1) mmol/L Chloride 104 (98-107) mmol/L Carbon Dioxide 30 (22-32) mmol/L BUN 13 (9-20) mg/dL Creatinine 1.06 (0.66-1.25) mg/dL Estimated GFR > 60 (>60) mL/min BUN/Creatinine Ratio 12.3 (6-22) Glucose 114 H (70-100) mg/dL Calcium 9.7 (8.4-10.2) mg/dL Total Bilirubin 0.9 (0.2-1.3) mg/dL AST 29 (17-59) IU/L ALT 36 (<50) IU/L Alkaline Phosphatase 75 (38-126) U/L C-Reactive Protein 0.6 (<1.0) mg/dL Total Protein 8.3 H (6.3-8.2) g/dL Albumin 4.7 (3.5-5.0) g/dL Globulin 3.6 (1.7-4.1) g/dL Albumin/Globulin Ratio 1.3 (1.0-2.8) Imaging Data MR brain/orbits: Radiologist's Impression: Close Orbit MRI (Signed) Lena Otto - 01/26/24 Knee MRI (Signed) Roger Ying - 03/24/23 Injection for MRI Arthrogram (Signed) Chemo Amaya - 03/24/23 Foot MRI (Signed) Layo Wheatley - 05/03/20 Foot X-Ray (Signed) Bebeto Andres - 04/14/20 Foot X-Ray (Signed) Yanely Juarez - 03/10/19 [address]?[place] [address] Magnetic Resonance Report Signed Patient: Jonnathan Call MR#: [id number] : 1990 Acct:[id number] Age/Sex: 33 / M Date of Service: 01/26/24 Loc: ED Accession Number: [id number] Procedure: MR orbit wo/w con Ordering Provider: Annemarie Marrufo D.O. PROCEDURE:MR ORBIT WO/W CON COMPARISON:None. INDICATIONS:sent by opth for r/o ms, optic neuritis Technique: Pre contrast sagittal and axial FLAIR, axial gradient echo, T2, and diffusion-weighted sequences are followed by post contrast sagittal, axial, and coronal fat saturated T1 sequences of the orbits. FINDINGS:There is a dural-based avidly enhancing mass within the right middle cranial fossa anteriorly measuring roughly 35 mm transverse, with moderate surrounding ill-defined FLAIR signal elevation, spanning roughly 100 mm anteroposterior by 45 mm craniocaudal. There is diffuse right-sided sulcal effacement. There is roughly 9 mm of leftward midline shift. There is compression of the right lateral ventricle. No hydrocephalus. Diffusion-weighted imaging reveals no recent infarct. The sinuses, mastoids, and orbits are grossly unremarkable. IMPRESSION: 1. Right middle cranial fossa meningioma with surrounding vasogenic edema, and associated leftward midline shift. 2. Negative evaluation of the orbits. 3. No acute process. No recent infarct. Dictated by: Lena Otto M.D. on 01/26/2024 at 13:57 Approved by: Lena Otto M.D. on 01/26/2024 at 14:03 [facility] Narrative Medical decision making narrative: Spoke with Dr. Elizabeth OD who is an estimator and drafter supervisor at the [facility]. 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 As well as other vasculopathic risk factors. They defer dilation so patient can come to ED and is expected to follow up Wednesday to complete testing. We did discuss would be helpful to have CBC, CMP ESR and CRP for labs and MR brain and orbits with and without contrast. We will call back with any major changes on imaging or labs if negative patient is to return for follow-up testing as scheduled. Patient did arrive with his no and exam findings in the department. Labs show normal CRP and ESR, CMP shows sodium 138 potassium 4 4 chloride of 104 CO2 of 30 BUN 13 with creatinine of 1.06 glucose of 114, total protein is 8.3. CBC shows a white count of 6.3 hemoglobin is 16 hematocrit of 46 with platelets of 249. Eye exam was deferred as patient had on exam with the estimator and drafter supervisor today examination findings were sent with the patient. MR brain and orbits w/ and w/o contrast-shows right middle cranial fossa meningioma surrounding vasogenic edema, left midline shift mass appears to be 35 mm transverse with edema spanning roughly 100 mm x 45 mm with a right-sided sulcal effacement and approximately 9 mm left midline shift and compression of the right lateral ventricle with no hydro. Images were pushed to [facility], consulted with Neurosurgery. Spoke with Dr. Kendra Acevedo, neurosurgery. They reviewed patient's images accept for transfer plan for OR. Can go ahead and start on dexamethasone 4 mg q.6 hours. Discussed patient's symptoms so far have only been change to vision in the right eye has otherwise been neurologically intact. Updated patient, he has no acute neurologic changes otherwise besides his vision change. Agreeable to transfer. Patient agreeable to update Dr. Johnson. Dr. Jonhson also updated on findings from MR. Patient signed out to Dr. Gutierrez while awaiting bed assignment. Expected to get bed in next [address] Gutierrez -patient observed overnight, no events. In the morning we called [facility] and we were told that there were still no available beds but they would call if anything became available. Care of patient is signed out to daytime physician, Dr. Tez reagan: Received turned over. Review patient's history and physical exam. Patient has been ambulatory. No seizure activity. Alert and oriented x3. Has been receiving Decadron. Patient has been accepted at the [facility]. Patient now has a bed available. Patient is stable for transport. <Annemarie Gutierrez MD - Last Filed: 01/27/24 21:56> Lab Data Labs: Lab Results 01/26/24 Range/Units 10:38 WBC 6.3 (4.5-11.0) X10^3/uL RBC 5.25 (4.5-5.9) X10^6/uL Hgb 16.2 (13.5-17.5) g/dL Hct 46.9 (41-53) % MCV 89.3 (80-100) fL MCH 30.8 (26-34) PG MCHC 34.5 (30-36) % RDW 13.3 (11.6-14.8) % Plt Count 249 (150-400) X10^3/uL Neut % (Auto) 59.3 (50-75) % Lymph % (Auto) 30.4 (25-40) % Telf[place] % (Auto) 8.8 (3-14) % Eos % (Auto) 0.9 L (2-4) % Baso % (Auto) 0.6 (0-2) % Neut # (Auto) 3700 (2826-2263) /uL Lymph # (Auto) 1900 (2163-3882) /uL [place]elfair # (Auto) 600 (0-900) /uL Eos # (Auto) 100 (0-450) /uL Baso # (Auto) 0 (0-100) /uL ESR 3 (0-15) MM/HR Sodium 138 (137-145) mmol/L Potassium 4.4 (3.4-5.1) mmol/L Chloride 104 (98-107) mmol/L Carbon Dioxide 30 (22-32) mmol/L BUN 13 (9-20) mg/dL Creatinine 1.06 (0.66-1.25) mg/dL Estimated GFR > 60 (>60) mL/min BUN/Creatinine Ratio 12.3 (6-22) Glucose 114 H (70-100) mg/dL Calcium 9.7 (8.4-10.2) mg/dL Total Bilirubin 0.9 (0.2-1.3) mg/dL AST 29 (17-59) IU/L ALT 36 (<50) IU/L Alkaline Phosphatase 75 (38-126) U/L C-Reactive Protein 0.6 (<1.0) mg/dL Total Protein 8.3 H (6.3-8.2) g/dL Albumin 4.7 (3.5-5.0) g/dL Globulin 3.6 (1.7-4.1) g/dL Albumin/Globulin Ratio 1.3 (1.0-2.8) MDM Narrative Medical decision making narrative: Spoke with Dr. Elizabeth OD who is an estimator and drafter supervisor at the [facility]. 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 As well as other vasculopathic risk factors. They defer dilation so patient can come to ED and is expected to follow up Wednesday to complete testing. We did discuss would be helpful to have CBC, CMP ESR and CRP for labs and MR brain and orbits with and without contrast. We will call back with any major changes on imaging or labs if negative patient is to return for follow-up testing as scheduled. Patient did arrive with his no and exam findings in the department. Labs show normal CRP and ESR, CMP shows sodium 138 potassium 4 4 chloride of 104 CO2 of 30 BUN 13 with creatinine of 1.06 glucose of 114, total protein is 8.3. CBC shows a white count of 6.3 hemoglobin is 16 hematocrit of 46 with platelets of 249. Eye exam was deferred as patient had on exam with the estimator and drafter supervisor today examination findings were sent with the patient. MR brain and orbits w/ and w/o contrast-shows right middle cranial fossa meningioma surrounding vasogenic edema, left midline shift mass appears to be 35 mm transverse with edema spanning roughly 100 mm x 45 mm with a right-sided sulcal effacement and approximately 9 mm left midline shift and compression of the right lateral ventricle with no hydro. Images were pushed to [facility], consulted with Neurosurgery. Spoke with Dr. Kendra Acevedo, neurosurgery. They reviewed patient's images accept for transfer plan for OR. Can go ahead and start on dexamethasone 4 mg q.6 hours. Discussed patient's symptoms so far have only been change to vision in the right eye has otherwise been neurologically intact. Updated patient, he has no acute neurologic changes otherwise besides his vision change. Agreeable to transfer. Patient agreeable to update Dr. Johnson. Dr. Johnson also updated on findings from MR. Dr. Gutierrez -patient observed overnight, no events. In the morning we called [facility] and we were told that there were still no available beds but they would call if anything became available. Care of patient is signed out to daytime physician, Dr. Reagan <Forrest Reagan, - Last Filed: 01/27/24 14:37> Lab Data Labs: Lab Results 01/26/24 Range/Units 10:38 WBC 6.3 (4.5-11.0) X10^3/uL RBC 5.25 (4.5-5.9) X10^6/uL Hgb 16.2 (13.5-17.5) g/dL Hct 46.9 (41-53) % MCV 89.3 (80-100) fL MCH 30.8 (26-34) PG MCHC 34.5 (30-36) % RDW 13.3 (11.6-14.8) % Plt Count 249 (150-400) X10^3/uL Neut % (Auto) 59.3 (50-75) % Lymph % (Auto) 30.4 (25-40) % [place] % (Auto) 8.8 (3-14) % Eos % (Auto) 0.9 L (2-4) % Baso % (Auto) 0.6 (0-2) % Neut # (Auto) 3700 (1287-3560) /uL Lymph # (Auto) 1900 (8621-3946) /uL [place] # (Auto) 600 (0-900) /uL Eos # (Auto) 100 (0-450) /uL Baso # (Auto) 0 (0-100) /uL ESR 3 (0-15) MM/HR Sodium 138 (137-145) mmol/L Potassium 4.4 (3.4-5.1) mmol/L Chloride 104 (98-107) mmol/L Carbon Dioxide 30 (22-32) mmol/L BUN 13 (9-20) mg/dL Creatinine 1.06 (0.66-1.25) mg/dL Estimated GFR > 60 (>60) mL/min BUN/Creatinine Ratio 12.3 (6-22) Glucose 114 H (70-100) mg/dL Calcium 9.7 (8.4-10.2) mg/dL Total Bilirubin 0.9 (0.2-1.3) mg/dL AST 29 (17-59) IU/L ALT 36 (<50) IU/L Alkaline Phosphatase 75 (38-126) U/L C-Reactive Protein 0.6 (<1.0) mg/dL Total Protein 8.3 H (6.3-8.2) g/dL Albumin 4.7 (3.5-5.0) g/dL Globulin 3.6 (1.7-4.1) g/dL Albumin/Globulin Ratio 1.3 (1.0-2.8) MDM Narrative Medical decision making narrative: Spoke with Dr. Elizabeth OD who is an estimator and drafter supervisor at the [facility]. 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 As well as other vasculopathic risk factors. They defer dilation so patient can come to ED and is expected to follow up Wednesday to complete testing. We did discuss would be helpful to have CBC, CMP ESR and CRP for labs and MR brain and orbits with and without contrast. We will call back with any major changes on imaging or labs if negative patient is to return for follow-up testing as scheduled. Patient did arrive with his no and exam findings in the department. Labs show normal CRP and ESR, CMP shows sodium 138 potassium 4 4 chloride of 104 CO2 of 30 BUN 13 with creatinine of 1.06 glucose of 114, total protein is 8.3. CBC shows a white count of 6.3 hemoglobin is 16 hematocrit of 46 with platelets of 249. Eye exam was deferred as patient had on exam with the estimator and drafter supervisor today examination findings were sent with the patient. MR brain and orbits w/ and w/o contrast-shows right middle cranial fossa meningioma surrounding vasogenic edema, left midline shift mass appears to be 35 mm transverse with edema spanning roughly 100 mm x 45 mm with a right-sided sulcal effacement and approximately 9 mm left midline shift and compression of the right lateral ventricle with no hydro. Images were pushed to [facility], consulted with Neurosurgery. Spoke with Dr. Kendra Acevedo, neurosurgery. They reviewed patient's images accept for transfer plan for OR. Can go ahead and start on dexamethasone 4 mg q.6 hours. Discussed patient's symptoms so far have only been change to vision in the right eye has otherwise been neurologically intact. Updated patient, he has no acute neurologic changes otherwise besides his vision change. Agreeable to transfer. Patient agreeable to update Dr. Johnson. Dr. Johnson also updated on findings from MR. Dr. Gutierrez -patient observed overnight, no events. In the morning we called [facility] and we were told that there were still no available beds but they would call if anything became available. Care of patient is signed out to daytime physician, Dr. Tez reagan: Received turned over. Review patient's history and physical exam. Patient has been ambulatory. No seizure activity. Alert and oriented x3. Has been receiving Decadron. Patient has been accepted at the [facility]. Patient now has a bed available. Patient is stable for transport. Discharge Plan Departure Patient Disposition: [facility] Clinical Impression: Brain mass, Vasogenic cerebral edema Referrals: Arsenio Barragan MD [Primary Care Provider] -
--- NOTE | 2024-01-26 12:07 | PC.NURSE ---
pt going to MRI. picked up by [facility]
[2024-01-26] MEDS: DEXAMETHASONE 4 MG/ML VIAL IV ×2 (15:43→21:51)
--- NOTE | 2024-01-26 15:51 | PC.NURSE ---
pt informed that due to surgery, we should not have any more to eat from now on. last ate a sandwich estimated at 1400. He is okay to sip water per provider.
--- NOTE | 2024-01-26 17:42 | PC.NURSE ---
[facility] [employer] NOTE: no bed at [facility], call back at 0600 on 01/27/24
[2024-01-26] MEDS: ACETAMINOPHEN 325 MG TABLET 975 MG PO (23:54)
[2024-01-27] MEDS: DEXAMETHASONE 4 MG/ML VIAL IV ×3 (03:26→15:30)
--- NOTE | 2024-01-27 06:07 | PC.NURSE ---
dex4mg IV q6h Neurosurgeon- Kendra Acevedo accepted for transfer, plan for OR, awaiting bed. no bed tonight check back @0600 on 01/27/24 Elizabeth [phone] cell office [phone] I called [facility] back at 0600 and spoke with the transfer center bottling supervisor. She said that they still don't have any beds available and do not have an estimated time on when one will become available. She said that they will call back once they have a bed available.
[2024-01-27 08:54] VITALS: BP 164/94; PULSE 72; RESP 16; TEMP 36.9; O2SAT 98
[2024-01-27] MEDS: ACETAMINOPHEN 325 MG TABLET 975 MG PO (09:47)
--- NOTE | 2024-01-27 12:07 | PC.NURSE ---
pt showered independently without any difficulty. no c/o dizziness.
--- NOTE | 2024-01-27 12:12 | PC.NURSE ---
pt reports that he still sees a smudge in his right eye. pressure in his eye. unchanged from yesterday. slight headache. tylenol was given with good results. excellent steady gait. was able to shower and ambulate without incident. . no dizziness. weakness or lightheadness. pt is AAoX 4. pleasant and cooperative.
--- NOTE | 2024-01-27 13:27 | PC.NURSE ---
[employer] TECHNICIAN NOTE: [facility] available starting @[address] report # [phone]
[2024-01-27 13:55] VITALS: BP 156/100; PULSE 68; RESP 16; O2SAT 98
[2024-01-27 19:45] VITALS: BP 176/86; PULSE 67; RESP 16; TEMP 36.8; O2SAT 96
[2024-01-27 19:58] VITALS: BP 176/101
[2024-01-27] MEDS: HYDRALAZINE 20 MG/ML VIAL 10 MG IV (19:58)
== END 2024-01-27 20:21 | disposition short-term general hospital (02) ==
PROVIDERS: Emergency Medicine; Emergency Provider Emergency Medicine; PCP Preventive Medicine Public Health & General Preventive Medicine
DX: G93.6 Cerebral edema (principal); G93.89 Other specified disorders of brain
CPT/HCPCS: 36415; 70543; 80053; 85025; 85651; 86140; 96374; 96375; 99284; A9579; J0360; J1100